=== PATIENT | female | born 1950 | race Caucasian/White ===

== ENCOUNTER 2016-09-02 17:22 | Inpatient (IN) | payer MEDICARE, OTHER ==
[~2016-09-02] VITALS: Ht 165.1 cm; Wt 53.7 kg
[~2016-09-02 17:22] MED LIST: ADULT LOW DOSE81 MG PO; ALDACTONE25 MG PO; CALCIUM500 MG PO; CARAFATE1 GM PO; FLEXERIL 10 MG10 MG PO; GLUCOPHAGE500 MG PO; MIRALAX17 GM PO; NORCO 10-325 T1 EACH PO; POTASSIUM CITR10 MEQ PO; SYNTHROID50 MCG PO; TOPROL XL50 MG PO; TYLENOL W/CODEIN1 E1 PO; VALIUM 5 MG TAB5 MG PO; VALIUM10 MG PO; XOPENEX0.31 MG/3 NEB; ZOCOR10 MG PO
[2016-09-02 20:17] LABS: RED BLOOD COUNT 2.01 M/UL (4.00-5.10); WHITE BLOOD COUNT 7.6 K/UL (4.5-11.0)
[2016-09-02 20:24] LABS: HEMOGLOBIN 6.5 gm/dl (12.3-15.3)
[2016-09-02 20:34] LABS: BUN/CREATININE RATIO 12 (0-10)
[2016-09-03 07:12] LABS: HEMOGLOBIN 10.2 gm/dl (12.3-15.3); RED BLOOD COUNT 3.26 M/UL (4.00-5.10); WHITE BLOOD COUNT 4.5 K/UL (4.5-11.0)
[2016-09-03 07:21] LABS: BUN/CREATININE RATIO 25 (0-10)
[2016-09-03] MEDS ORDERED: CARAFATE1 GM PO (15:29)
[2016-09-03] MEDS ORDERED: CYPROHEPTADINE H4 MG PO (15:30)
[2016-09-03] MEDS ORDERED: VITAMIN D 40400 UNIT PO (15:33)
[2016-09-03] MEDS ORDERED: LEXAPRO10 MG PO (15:35)
[2016-09-03] MEDS ORDERED: REMERON15 MG PO (15:35)
[2016-09-03] MEDS ORDERED: ADVAIR 250-501 EACH INH (15:36)
[2016-09-04 04:25] LABS: HEMOGLOBIN 9.2 gm/dl (12.3-15.3); RED BLOOD COUNT 2.98 M/UL (4.00-5.10); WHITE BLOOD COUNT 3.8 K/UL (4.5-11.0)
[2016-09-04 04:48] LABS: BUN/CREATININE RATIO 18 (0-10)
[2016-09-05 04:43] LABS: BUN/CREATININE RATIO 10 (0-10)
[2016-09-05 04:49] LABS: HEMOGLOBIN 9.2 gm/dl (12.3-15.3); RED BLOOD COUNT 2.99 M/UL (4.00-5.10)
[2016-09-05 04:50] LABS: WHITE BLOOD COUNT 6.3 K/UL (4.5-11.0)
[2016-09-05] MEDS ORDERED: CYPROHEPTADINE H4 MG PO (14:17)
[2016-09-05] MEDS ORDERED: MEDROL DOSEPAK 24 MG PO (14:20)
[2016-09-05] MEDS ORDERED: ATROVENT INH S2.5 ML NEB (14:22)
[2016-09-05] MEDS ORDERED: XOPENEX1.25 MG/3 NEB (14:25)
== END 2016-09-05 17:12 | disposition home or self-care (01) | DRG 190 ==
LOC: ER1 17:22 → PROG CARE 21:16 → ZEROF 21:16 → PROG CARE 09-03 14:39
PROVIDERS: Internal Medicine; Physician Assistant; ADMIT Family Medicine
PROC: 30233N1 Transfusion of Nonautologous Red Blood Cells into Peripheral Vein, Percutaneous Approach (ICD-10-PCS; principal; 2016-09-02)
PROC: 6A550Z2 Pheresis of Platelets, Single (ICD-10-PCS; 2016-09-02)
PROC: 30233N1 Transfusion of Nonautologous Red Blood Cells into Peripheral Vein, Percutaneous Approach (ICD-10-PCS; 2016-09-03)
DX: J44.1 Chronic obstructive pulmonary disease with (acute) exacerbation (principal); J96.21 Acute and chronic respiratory failure with hypoxia; D61.810 Antineoplastic chemotherapy induced pancytopenia; C34.12 Malignant neoplasm of upper lobe, left bronchus or lung; Z68.1 Body mass index [BMI] 19.9 or less, adult; T45.1X5A Adverse effect of antineoplastic and immunosuppressive drugs, initial encounter; E11.9 Type 2 diabetes mellitus without complications; R00.0 Tachycardia, unspecified; E03.9 Hypothyroidism, unspecified; I10 Essential (primary) hypertension; E83.42 Hypomagnesemia; R63.4 Abnormal weight loss; R04.0 Epistaxis; F17.210 Nicotine dependence, cigarettes, uncomplicated; F41.9 Anxiety disorder, unspecified; H54.0 Blindness, both eyes; Z92.3 Personal history of irradiation; Z79.84 Long term (current) use of oral hypoglycemic drugs; Z79.82 Long term (current) use of aspirin; Z99.81 Dependence on supplemental oxygen; Z79.891 Long term (current) use of opiate analgesic; Z79.899 Other long term (current) drug therapy; Z88.5 Allergy status to narcotic agent; Z90.49 Acquired absence of other specified parts of digestive tract; Z98.890 Other specified postprocedural states; Z82.49 Family history of ischemic heart disease and other diseases of the circulatory system; Z81.8 Family history of other mental and behavioral disorders; Z80.9 Family history of malignant neoplasm, unspecified
CPT/HCPCS: 36415; 36430; 36600; 71010; 80048; 80053; 82550; 82553; 82803; 82962; 83540; 83550; 83605; 83735; 83874; 84439; 84443; 84484; 85025; 85027; 85379; 85610; 85730; 86850; 86900; 86901; 86920; 87040; 93005; 94640; 94664; 96365; 96375; 99284; J1940; J2920; J2930; J7030; P9016; P9037

== ENCOUNTER → 2016-10-04 | Outpatient (CLI) | payer MEDICARE, OTHER ==
[~2016-10-04] MED LIST changes: +ADVAIR 250-501 EACH INH; +ATROVENT INH S2.5 ML NEB; +CYPROHEPTADINE H4 MG PO; +LEXAPRO10 MG PO; +MEDROL DOSEPAK 24 MG PO; +REMERON15 MG PO; +VITAMIN D 40400 UNIT PO; +XOPENEX1.25 MG/3 NEB
== END ==
LOC: OPSV 12:17 → CT 12:17
DX: C34.12 Malignant neoplasm of upper lobe, left bronchus or lung (principal)
CPT/HCPCS: 71260; J1642; J7050; Q9962